=== PATIENT | female | born 1935 | race Caucasian/White ===

== ENCOUNTER 2018-06-28 15:41 | Outpatient (CLI) | payer MEDICARE, BC ==
[2018-06-28 17:24] LABS: #Basophils 0.1 thou/uL (0.0-0.2); #Eosinphils 0.2 thou/uL (0.0-0.7); #Lymphocytes 1.9 thou/uL (1.20-3.40); #Monocytes 0.8 thou/uL (0.11-0.59); #Neutrophils 5.6 thou/uL (1.40-6.50); %Basophils 0.9 % (0.0-1.0); %Eosinophils 2.8 % (0.0-10.0); %Lymphocytes 22.2 % (21.0-51.0); %Monocytes 9.7 % (0.0-10.0); %Neutrophils 64.4 % (42.0-75.0); Hemoglobin 13.2 g/dL (12.0-16.0); Mean Corpuscular HGB CONC 32.7 g/dL (32.0-36.0); Mean Corpuscular Hemoglobin 29.6 pg (27.0-31.0); Mean Corpuscular Volume 90.3 fL (78.0-98.0); Mean Platelet Volume 6.9 fL (7.4-10.4); Platelet Count 211 thou/uL (130-400); RBC Distribution Width 13.3 % (11.5-14.5); Red Blood Cell (RBC) Count 4.48 mill/uL (4.20-5.40); White Blood Cell (WBC) Count 8.7 thou/uL (4.8-10.8)
--- NOTE | 2018-06-28 17:28 | RAD ---
TWO VIEWS OF THE CHEST: 06/28/18 COMPARISON: 04/19/16 HISTORY: Preoperative patient. FINDINGS: Heart and mediastinal contours are stable. Mild linear interstitial density noted bilaterally, stable . Old distal left clavicle fracture and old proximal left humerus fracture noted. No focal consolidat ion, or alveolar edema. IMPRESSION: No acute findings. POS: TIN
[2018-06-28 17:56] LABS: ALT (SGPT) 11 U/L (8-55); AST (SGOT) 21 U/L (5-34); Albumin 4.4 g/dL (3.4-4.8); Alkaline Phosphatase 73 U/L (40-150); Anion Gap 16 mmol/L (10-20); BUN (Urea Nitrogen) 20 mg/dL (9.8-20.1); Bilirubin, Total 0.4 mg/dL (0.2-1.2); Calc. Creatinine Clearance 0 mL/min (70-130); Calcium 9.8 mg/dL (7.8-10.44); Carbon Dioxide 30 mmol/L (23-31); Chloride 98 mmol/L (98-107); Estimated GFR-MDRD 77; Globulin 2.4 g/dL (2.4-3.5); Glucose 93 mg/dL (83-110); Potassium 4.5 mmol/L (3.5-5.1); Protein, Total 6.8 g/dL (6.0-8.3); Sodium 139 mmol/L (136-145)
== END 2018-06-28 15:42 | disposition home or self-care (01) ==
LOC: LABBT 15:41
PROVIDERS: ATTEND Specialist
DX: Z01.818 Encounter for other preprocedural examination (principal); K80.20 Calculus of gallbladder without cholecystitis without obstruction
CPT/HCPCS: 71046; 80053; 85025; 93005; 93010

== ENCOUNTER 2018-07-06 06:22 | Day surgery (SDC) | payer MEDICARE, BC ==
[2018-06-28 16:12] VITALS: BMI 38.5
[2018-07-06] MEDS ORDERED: Ketorolac Tromethamine 30 MG/ML VIAL ONE (07:57)
[2018-07-06] MEDS ORDERED: CEFAZOLIN 2 GM/50 ML BAG ONE (07:57)
[2018-07-06] MEDS ORDERED: Bupivacaine HCl 0.5%/Epinephrine 1:200,000/PF 30 ml Vial ONE (08:43)
[2018-07-06] MEDS ORDERED: Fentanyl 100 MCG/2 ML VIAL ONE ×3 (08:52→11:00)
[2018-07-06] MEDS ORDERED: Promethazine HCl 25 MG/ML VIAL ONE (11:03)
[2018-07-06] MEDS ORDERED: HYDROcodone/Acetaminophen 5/325 mg Tablet ONE (13:41)
[2018-07-06] MEDS ORDERED: Glycopyrrolate 0.2 MG/ML 5 ML SYRINGE ONE (17:01)
[2018-07-06] MEDS ORDERED: Rocuronium Bromide 10 MG/ML (10ML VIAL) ONE (17:01)
[2018-07-06] MEDS ORDERED: PROPOFOL 200 MG/20 ML VIAL ONE (17:01)
[2018-07-06] MEDS ORDERED: Ondansetron PF 4 MG/2 ML Vial ONE (17:01)
[2018-07-06] MEDS ORDERED: PHENYLEPHRINE-NS 100 MCG/ML 10 ML SYRINGE ONE (17:01)
--- NOTE | 2018-07-06 17:48 | OP ---
DATE OF PROCEDURE: 07/06/2018 PREOPERATIVE DIAGNOSIS: Symptomatic cholelithiasis. POSTOPERATIVE DIAGNOSIS: Symptomatic cholelithiasis. PROCEDURE PERFORMED: Laparoscopic cholecystectomy. ANESTHESIA: General endotracheal. INDICATIONS: The patient is an 83-year-old obese white female. She presents with cholelithiasis and symptoms referable to gallbladder. Laparoscopic cholecystectomy is recommended. DESCRIPTION OF OPERATION: Informed consent was obtained. The patient was taken to the operating room where general endotracheal anesthesia was obtained with the patient in the supine position. The abdomen was prepped with Betadine and draped in the usual sterile fashion. 0.25% Marcaine with epinephrine was infiltrated below the umbilicus and a 10 mm infraumbilical incision was created. A Veress needle was passed through this incision into the peritoneal cavity. A pneumoperitoneum was established using carbon dioxide up to a pressure of 15 mmHg. Local anesthetic was infiltrated and 3 additional 5 mm right upper quadrant incisions were created. Through the mid incision, a 5 mm port was passed into the peritoneal cavity. The camera was passed through this port and under direct vision, an 11 port was passed through the infraumbilical incision. The camera was replaced through this port, and under direct vision, 2 additional 5 mm ports were passed through the incisions already created. The gallbladder was grasped and retracted in a cephalad direction. Minimal adhesions were bluntly stripped away from the apex of the gallbladder, and the apex was retracted laterally and inferiorly. Careful dissection was carried out to the apex of the gallbladder to identify the cystic duct and cystic artery. These were each carefully dissected circumferentially. The duct was of normal caliber. Both the duct and the artery were divided between clips, leaving 2 on the side to remain within the abdomen. The gallbladder was then dissected out of the gallbladder fossa using electrocautery and removed through the infraumbilical port site. The fascia was closed with 0 Vicryl suture and a GraNee needle. The right upper quadrant was inspected and irrigated. All irrigant was aspirated. All ports and instruments were removed under direct vision. Pneumoperitoneum was carefully evacuated. Additional local anesthetic was infiltrated into each port site. The skin edges were approximated with 4-0 Monocryl subcuticular sutures, and Dermabond was placed externally. There were no complications. The patient tolerated the procedure well and was taken to the recovery room in stable condition. FINDINGS: Her gallbladder was without inflammatory changes. There were no adhesions. There were stones present within the gallbladder. The duct was small and noninflamed. Cholangiogram was not obtained. There were no complications. The patient tolerated the procedure well. Blood loss was negligible. She was taken to recovery room in stable condition. Job ID: [id number]
== END 2018-07-06 16:03 | disposition home or self-care (01) ==
LOC: SDC 06:22
PROVIDERS: ATTEND Specialist
PROC: 0FT44ZZ Resection of Gallbladder, Percutaneous Endoscopic Approach (ICD-10-PCS; principal; 2018-07-06)
DX: K80.10 Calculus of gallbladder with chronic cholecystitis without obstruction (principal); F32.9 Major depressive disorder, single episode, unspecified; G20 Parkinson's disease; J42 Unspecified chronic bronchitis; E07.9 Disorder of thyroid, unspecified; Z79.899 Other long term (current) drug therapy; Z88.5 Allergy status to narcotic agent; Z88.8 Allergy status to other drugs, medicaments and biological substances
CPT/HCPCS: 88304; J0131; J0670; J1885; J2405; J2550; J2704; J3010

== ENCOUNTER 2018-10-25 12:58 | Outpatient (CLI) | payer MEDICARE, BC ==
--- NOTE | 2018-10-25 13:56 | RAD ---
MARTEL' VIEW SINUSES ONE VIEW ONLY: HISTORY: MRI safety. FINDINGS: No evidence for metal foreign body within either the right or left orbit. IMPRESSION: No evidence for metal foreign body within the orbits. POS: OFF
--- NOTE | 2018-10-25 14:58 | MRI ---
MRI CERVICAL SPINE WITHOUT CONTRAST: HISTORY: Neuropathic pain. Stinging sensation in the entire torso and bilateral arms. COMPARISON: 10/18/2016 FINDINGS: No tonsillar herniation is seen. The vertebral body heights and marrow signal are maintained. There is loss of cervical lordosis. Tiny disk osteophyte complexes and uncovertebral hypertrophic changes are seen, most prominent at the C4-C5, C5-C6, and C6-C7 levels. Mild neural foraminal stenosis is s een at these levels. No cord impingement or compression is seen. The cervical spinal cord demonstra nilton normal cord caliber and signal. Multilevel facet hypertrophic changes are also noted. IMPRESSION: Mild degenerative changes in the cervical spine, as discussed above. POS: CHENG
--- NOTE | 2018-10-25 15:00 | MRI ---
MRI OF THE THORACIC SPINE WITHOUT CONTRAST: INDICATION: History of neuropathic pain. COMPARISON: None. FINDINGS: Bone marrow signal intensity appears within normal limits. The spinal cord of the thoracic spine benjamin ears within normal limits. Prevertebral and paravertebral soft tissues appear within normal limits. At the T1-T2 level, there is mild facet joint degenerative change with mild right neural foraminal na rrowing. At T2-T3, there is no appreciable central canal or neural foraminal narrowing. At T3-4, there is no appreciable central canal or neural foraminal narrowing. At T4-5, there is no appreciable central canal or neural foraminal narrowing. At T5-6, there is no appreciable central canal or neural foraminal narrowing. At T6-7, there is no appreciable central canal or neural foraminal narrowing. At T7-T8, there is no appreciable central canal or neural foraminal narrowing. At T8-T9, there is no appreciable central canal or neural foraminal narrowing. At T9-T10, there is no appreciable central canal or neural foraminal narrowing. At T10-T11, there is a mild broad-based bulge, but no appreciable central canal or neural foraminal n arrowing. At T11-T12, there is no appreciable central canal or neural foraminal narrowing. There are small pe rimeningeal cysts bilaterally. At T12-L1, there is no appreciable central canal or neural foraminal narrowing. IMPRESSION: 1. Mild spondylosis of the thoracic spine without appreciable central canal or neural foraminal narr owing. 2. There is mild right neural foraminal narrowing at T1-T2 due to facet hypertrophy. POS: TPC
== END 2018-10-25 12:59 | disposition home or self-care (01) ==
LOC: BICMRI 12:58
PROVIDERS: ATTEND Nurse Practitioner Family
DX: M79.2 Neuralgia and neuritis, unspecified (principal); M47.814 Spondylosis without myelopathy or radiculopathy, thoracic region; M47.812 Spondylosis without myelopathy or radiculopathy, cervical region; M48.04 Spinal stenosis, thoracic region
CPT/HCPCS: 70210; 72141; 72146

== ENCOUNTER 2018-11-23 08:28 | Outpatient (CLI) | payer MEDICARE, BC ==
--- NOTE | 2018-11-23 14:03 | NM ---
Nuclear medicine [facility]RO brain scan: 11/23/2018 HISTORY: 83-year-old female with Parkinson's disease. TECHNIQUE: Premedication with 130 mg Potassium iodide by mouth 1 hour prior to injection of radiopharmaceutical. 4.65 mCi of I-123 Ioflupane injected. Three-hour delayed SPECT images of brain. FINDINGS: There is symmetrical uptake in the bilateral putamen and caudate nuclei. IMPRESSION: Normal. No evidence of parkinsonism.
== END 2018-11-23 08:29 | disposition home or self-care (01) ==
LOC: NM 08:28
PROVIDERS: ATTEND Psychiatry & Neurology Neurology
DX: G20 Parkinson's disease (principal)
CPT/HCPCS: 78607; A9584

== ENCOUNTER 2019-07-13 13:54 | Emergency (ER) | payer MEDICARE, BC ==
[~2019-07-13 13:54] MED LIST: Iopamidol-370 76% 500 ML 1 ML ONE
[2019-07-13 14:39] LABS: #Basophils 0.1 thou/uL (0.0-0.2); #Eosinphils 0.2 thou/uL (0.0-0.7); #Lymphocytes 1.7 thou/uL (1.20-3.40); #Monocytes 0.8 thou/uL (0.11-0.59); #Neutrophils 5.6 thou/uL (1.40-6.50); %Basophils 0.8 % (0.0-1.0); %Eosinophils 2.4 % (0.0-10.0); %Neutrophils 66.9 % (42.0-75.0); Hemoglobin 14.2 g/dL (12.0-16.0); Mean Corpuscular HGB CONC 33.1 g/dL (32.0-36.0); Mean Corpuscular Hemoglobin 29.9 pg (27.0-31.0); Mean Corpuscular Volume 90.3 fL (78.0-98.0); Mean Platelet Volume 7.4 fL (7.4-10.4); Platelet Count 217 thou/uL (130-400); RBC Distribution Width 14.2 % (11.5-14.5); Red Blood Cell (RBC) Count 4.74 mill/uL (4.20-5.40); White Blood Cell (WBC) Count 8.4 thou/uL (4.8-10.8)
[2019-07-13 16:19] LABS: Albumin 3.9 g/dL (3.4-4.8)
[2019-07-13 16:20] LABS: Calcium 9.3 mg/dL (7.8-10.44); Chloride 96 mmol/L (98-107); Potassium 3.8 mmol/L (3.5-5.1); Sodium 136 mmol/L (136-145)
[2019-07-13 16:21] LABS: Glucose 99 mg/dL (83-110)
[2019-07-13 16:22] LABS: Globulin 2.5 g/dL (2.4-3.5); Protein, Total 6.4 g/dL (6.0-8.3)
[2019-07-13 16:23] LABS: Anion Gap 16 mmol/L (10-20); Bilirubin, Total 0.4 mg/dL (0.2-1.2); Carbon Dioxide 28 mmol/L (23-31)
[2019-07-13 16:24] LABS: Alkaline Phosphatase 68 U/L (40-110)
[2019-07-13 16:25] LABS: BUN (Urea Nitrogen) 22 mg/dL (9.8-20.1); Calc. Creatinine Clearance 0 mL/min (70-130); Estimated GFR-MDRD 80
[2019-07-13 16:26] LABS: AST (SGOT) 17 U/L (5-34)
[2019-07-13 16:27] LABS: ALT (SGPT) Less than 7 U/L (8-55); Lipase 9 U/L (8-78)
--- NOTE | 2019-07-13 16:51 | CT ---
CT abdomen and pelvis with IV contrast HISTORY: Abdominal pain. COMPARISON: 03/13/2013. FINDINGS: Small hiatal hernia is apparent. Scattered tiny cysts throughout the liver are unchanged ap pearance from the prior study. Gallbladder is now surgically absent. The very heterogeneous density of the spleen with innumerable tiny hypodense nodules is stable. 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 Prominent calcification throughout the arterial structures. Postoperative and degenerative changes carmen mbar spine. Fat and bowel protrude into an umbilical hernia that measures up to 6.6 cm diameter and has a 3.8 cm wide neck. A mildly dilated loop of distal ileum extends into the hernia. The bowel wall within the hernia is not significantly thickened or inflamed, although there is stranding in the herniated fat. The distal ileum exiting the hernia extends directly to the colon. There are nondilated loops of jejunum and ileum throughout the abdomen, arguing against a significant obstruction. No free air or free fluid. Diverticula arise from the colon without adjacent inflammation. IMPRESSION: Umbilical hernia containing nonobstructed ileum and abdominal fat that shows mild inflamm ation. Small hiatal hernia. Atherosclerosis. Diverticulosis. No evidence of diverticulitis. Chronic-type findings are stable.
== END 2019-07-13 17:02 | disposition home or self-care (01) ==
LOC: ERS 13:54
DX: K44.9 Diaphragmatic hernia without obstruction or gangrene (principal); K42.9 Umbilical hernia without obstruction or gangrene; K21.9 Gastro-esophageal reflux disease without esophagitis; E03.9 Hypothyroidism, unspecified; Z79.899 Other long term (current) drug therapy
CPT/HCPCS: 36415; 74177; 80053; 83690; 84484; 85025; 93005; Q9967

== ENCOUNTER 2021-05-05 14:09 | Outpatient (CLI) | payer MEDICARE, BC | END 2021-05-05 14:10 | disposition home or self-care (01) | LOC: BICRAD 14:09 | PROVIDERS: ATTEND Physician Assistant Medical | DX: R13.10 Dysphagia, unspecified (principal); R11.0 Nausea; K59.00 Constipation, unspecified | CPT/HCPCS: 74018 ==

== ENCOUNTER 2021-10-29 13:53 | Outpatient (CLI) | payer MEDICARE, BC | END 2021-10-29 13:54 | disposition home or self-care (01) | LOC: MRI 13:53 | PROVIDERS: ATTEND Anesthesiology Pain Medicine | DX: M47.26 Other spondylosis with radiculopathy, lumbar region (principal); M48.062 Spinal stenosis, lumbar region with neurogenic claudication; K76.9 Liver disease, unspecified; D73.89 Other diseases of spleen; M25.78 Osteophyte, vertebrae; M24.28 Disorder of ligament, vertebrae | CPT/HCPCS: 72148 ==

== ENCOUNTER 2022-06-23 07:30 | Day surgery (SDC) | payer MEDICARE, BC ==
[2022-06-22 11:57] VITALS: BMI 35.6
[2022-06-23 08:38] LABS: #Basophils 0.1 thou/uL (0.0-0.2); #Eosinphils 0.2 thou/uL (0.0-0.7); #Lymphocytes 1.7 thou/uL (1.20-3.40); #Monocytes 0.7 thou/uL (0.11-0.59); #Neutrophils 5.4 thou/uL (1.40-6.50); %Basophils 0.7 % (0.0-1.0); %Eosinophils 1.9 % (0.0-10.0); %Lymphocytes 20.8 % (21.0-51.0); %Monocytes 8.9 % (0.0-10.0); %Neutrophils 67.7 % (42.0-75.0); Hemoglobin 12.4 g/dL (12.0-16.0); Mean Corpuscular HGB CONC 32.5 g/dL (32.0-36.0); Mean Corpuscular Hemoglobin 28.6 pg (27.0-31.0); Mean Platelet Volume 7.6 fL (7.4-10.4); Platelet Count 182 10x3/uL (130-400); Red Blood Cell (RBC) Count 4.33 mill/uL (4.20-5.40); White Blood Cell (WBC) Count 7.9 10x3/uL (4.8-10.8)
[2022-06-23] MEDS ORDERED: Thrombin 5000 UNITS/5 ML VIAL ONE (08:44)
[2022-06-23] MEDS ORDERED: Bupivacaine HCl 0.5%/Epinephrine 1:200,000/PF 30 ml Vial ONE (08:44)
[2022-06-23 08:59] LABS: Anion Gap 12 mmol/L (10-20); BUN (Urea Nitrogen) 22 mg/dL (9.8-20.1); Calc. Creatinine Clearance 79 mL/min (70-130); Calcium 9.1 mg/dL (7.8-10.44); Carbon Dioxide 28 mmol/L (23-31); Chloride 101 mmol/L (98-107); Estimated GFR 81; Glucose 99 mg/dL (83-110); Potassium 4.2 mmol/L (3.5-5.1); Sodium 137 mmol/L (136-145)
[2022-06-23] MEDS ORDERED: SUGAMMADEX SODIUM 200 MG/2 ML VIAL ONE (09:04)
[2022-06-23] MEDS ORDERED: fentaNYL PF 100 MCG/2 ML SYRINGE ONE ×2 (09:08→11:03)
[2022-06-23] MEDS ORDERED: Sodium Chloride 0.9% 100 ML ONE ×2 (09:08→13:41)
[2022-06-23] MEDS ORDERED: CEFAZOLIN 2 GM VIAL ONE ×2 (09:08→13:41)
[2022-06-23] MEDS ORDERED: PROPOFOL 200 MG/20 ML VIAL ONE (09:30)
[2022-06-23] MEDS ORDERED: Lidocaine 1% PF 5 ML VIAL ONE (09:30)
[2022-06-23] MEDS ORDERED: Dexamethasone 20 MG/5 ML VIAL ONE (09:30)
[2022-06-23] MEDS ORDERED: PHENYLEPHRINE-NS 100 MCG/ML 10 ML SYRINGE ONE (09:30)
[2022-06-23] MEDS ORDERED: Ondansetron PF 4 MG/2 ML Vial ONE (09:30)
[2022-06-23] MEDS ORDERED: Rocuronium Bromide 10 MG/ML (10ML VIAL) ONE (09:30)
== END 2022-06-23 14:39 | disposition home or self-care (01) ==
LOC: SDC 07:30
PROVIDERS: ATTEND Neurological Surgery
PROC: 01NB0ZZ Release Lumbar Nerve, Open Approach (ICD-10-PCS; principal; 2022-06-23)
DX: M48.062 Spinal stenosis, lumbar region with neurogenic claudication (principal); E78.5 Hyperlipidemia, unspecified; G89.29 Other chronic pain; E03.9 Hypothyroidism, unspecified; M19.90 Unspecified osteoarthritis, unspecified site; I11.9 Hypertensive heart disease without heart failure; Z79.01 Long term (current) use of anticoagulants; Z79.890 Hormone replacement therapy; Z79.899 Other long term (current) drug therapy; Z88.5 Allergy status to narcotic agent; Z88.8 Allergy status to other drugs, medicaments and biological substances; Z95.0 Presence of cardiac pacemaker; Z98.1 Arthrodesis status
CPT/HCPCS: 80048; 85025; C1713; J1100; J2405; J2704; J3490

== ENCOUNTER 2023-10-28 06:41 | Day surgery (SDC) | payer MEDICARE, BC ==
[2023-10-27 15:43] VITALS: BMI 39.1
[2023-10-28 07:51] LABS: #Basophils 0.05 10x3/uL (0.0-0.2); %Basophils 0.6 % (0.0-1.0); %Eosinophils 1.9 % (0.0-10.0); %Monocytes 11.4 % (0.0-10.0); %Neutrophils 67.8 % (42.0-75.0); Hematocrit 35.9 % (36.0-47.0); Hemoglobin 11.3 g/dL (12.0-16.0); Mean Corpuscular HGB CONC 31.5 g/dL (32.0-36.0); Mean Corpuscular Hemoglobin 26.4 pg (27.0-31.0); Mean Corpuscular Volume 83.9 fL (78.0-98.0); Mean Platelet Volume 9.2 fL (7.4-10.4); Platelet Count 163 10x3/uL (130-400); RBC Distribution Width 16.7 % (11.5-14.5); Red Blood Cell (RBC) Count 4.28 mill/uL (4.20-5.40)
[2023-10-28 08:06] LABS: Anion Gap 12 mmol/L (10-20); BUN (Urea Nitrogen) 22 mg/dL (9.8-20.1); Calc. Creatinine Clearance 73 mL/min (70-130); Calcium 9.5 mg/dL (7.8-10.44); Carbon Dioxide 29 mmol/L (23-31); Chloride 104 mmol/L (98-107); Estimated GFR 67; Glucose 100 mg/dL (83-110); Sodium 140 mmol/L (136-145)
[2023-10-28] MEDS ORDERED: Lidocaine 1% PF 5 ML VIAL ONE (08:08)
[2023-10-28] MEDS ORDERED: SUGAMMADEX SODIUM 200 MG/2 ML VIAL ONE (08:08)
[2023-10-28] MEDS ORDERED: Rocuronium Bromide 10 MG/ML (10ML VIAL) ONE (08:08)
[2023-10-28] MEDS ORDERED: Ondansetron PF 4 MG/2 ML Vial ONE (08:08)
[2023-10-28] MEDS ORDERED: PHENYLEPHRINE-NS 100 MCG/ML 10 ML SYRINGE ONE (08:08)
[2023-10-28] MEDS ORDERED: fentaNYL PF 100 MCG/2 ML SYRINGE ONE (08:08)
[2023-10-28] MEDS ORDERED: PROPOFOL 20 ML ONE (08:08)
[2023-10-28] MEDS ORDERED: GLYCOPYRROLATE/PF 0.2 MG/ML VIAL ONE (08:08)
[2023-10-28] MEDS ORDERED: EPINEPHrine 1 MG/ML VIAL ONE (08:15)
[2023-10-28] MEDS ORDERED: Bupivacaine PF 0.5% 30 ML VIAL ONE (08:15)
[2023-10-28] MEDS ORDERED: Thrombin 5000 UNITS/5 ML VIAL ONE (08:15)
[2023-10-28] MEDS ORDERED: Sodium Chloride 0.9% 100 ML ONE ×2 (08:48→13:38)
[2023-10-28] MEDS ORDERED: CEFAZOLIN 2 GM VIAL ONE ×2 (08:48→13:37)
[2023-10-28] MEDS ORDERED: fentaNYL 50 mcg/mL 1 mL Vial ONE ×3 (10:36→12:02)
[2023-10-28] MEDS ORDERED: HYDROmorphone 0.5 MG/0.5 ML SYRINGE ONE ×2 (11:02→11:17)
== END 2023-10-28 15:10 | disposition home or self-care (01) ==
LOC: SDC 06:41
PROVIDERS: ATTEND Neurological Surgery
DX: M48.062 Spinal stenosis, lumbar region with neurogenic claudication (principal); M47.16 Other spondylosis with myelopathy, lumbar region; M70.62 Trochanteric bursitis, left hip; M70.61 Trochanteric bursitis, right hip; I48.91 Unspecified atrial fibrillation; I10 Essential (primary) hypertension; I73.9 Peripheral vascular disease, unspecified; I25.10 Atherosclerotic heart disease of native coronary artery without angina pectoris; M19.90 Unspecified osteoarthritis, unspecified site; G89.4 Chronic pain syndrome; E03.9 Hypothyroidism, unspecified; G20.A1 Parkinson's disease without dyskinesia, without mention of fluctuations; Z95.0 Presence of cardiac pacemaker; Z98.1 Arthrodesis status; Z88.5 Allergy status to narcotic agent; Z88.8 Allergy status to other drugs, medicaments and biological substances; Z79.01 Long term (current) use of anticoagulants; Z79.890 Hormone replacement therapy; Z79.899 Other long term (current) drug therapy
CPT/HCPCS: 63042; 80048; 85025; 93005; C1713; J0171; J3010; J3490; 93010; J0665; J1170; J2405; J2704

== ENCOUNTER 2024-03-05 11:19 | Inpatient (IN) | payer MEDICARE, BC ==
[2024-03-05 14:08] LABS: #Basophils 0.08 10x3/uL (0.0-0.2); %Basophils 0.9 % (0.0-1.0); %Eosinophils 2.8 % (0.0-10.0); %Lymphocytes 16.4 % (21.0-51.0); %Monocytes 11.1 % (0.0-10.0); %Neutrophils 68.3 % (42.0-75.0); Hematocrit 32.7 % (36.0-47.0); Mean Corpuscular HGB CONC 30.6 g/dL (32.0-36.0); Mean Corpuscular Hemoglobin 24.8 pg (27.0-31.0); Mean Corpuscular Volume 80.9 fL (78.0-98.0); Mean Platelet Volume 9.2 fL (7.4-10.4); Platelet Count 188 10x3/uL (130-400); RBC Distribution Width 16.6 % (11.5-14.5); Red Blood Cell (RBC) Count 4.04 mill/uL (4.20-5.40)
[2024-03-05 14:22] LABS: INR-International Normal Ratio 1.5; PTT 39.4 sec (22.9-36.1); Prothrombin Time 17.8 sec (12.0-14.7)
[2024-03-05 14:23] LABS: ALT (SGPT) 6 U/L (8-55); AST (SGOT) 21 U/L (5-34); Albumin 3.5 g/dL (3.4-4.8); Alkaline Phosphatase 76 U/L (40-110); Anion Gap 10 mmol/L (10-20); BUN (Urea Nitrogen) 15 mg/dL (9.8-20.1); Bilirubin, Total 0.7 mg/dL (0.2-1.2); Calc. Creatinine Clearance 0 mL/min (70-130); Calcium 8.9 mg/dL (7.8-10.44); Carbon Dioxide 27 mmol/L (23-31); Chloride 104 mmol/L (98-107); Estimated GFR 71; Glucose 99 mg/dL (83-110); Lipase 16 U/L (8-78); Protein, Total 6.5 g/dL (5.8-8.1); Sodium 137 mmol/L (136-145)
[2024-03-05 14:28] LABS: Troponin I 0.012 ng/mL (< 0.028)
[2024-03-05] MEDS ORDERED: Furosemide 40 MG (4 mL) VIAL ONE (14:54)
[2024-03-05] MEDS ORDERED: Calcium Carbonate 500 MG ChewTAB PO PRN (15:05)
[2024-03-05] MEDS ORDERED: Senokot S 8.6-50 MG TAB PO PRN (15:05)
[2024-03-05] MEDS ORDERED: Acetaminophen 325 MG TAB PO PRN (15:05)
[2024-03-05] MEDS ORDERED: Ondansetron ODT 4 MG TAB PO PRN (15:05)
[2024-03-05] MEDS: Dronedarone HCl 400 MG TAB PO SCH (18:53)
[2024-03-05 18:56] LABS: Troponin I 0.013 ng/mL (< 0.028)
[2024-03-05] MEDS ORDERED: Apixaban 5 MG TAB ONE (20:43)
[2024-03-05 21:20] LABS: Troponin I 0.013 ng/mL (< 0.028)
[2024-03-05] MEDS: Valsartan 80 MG TAB PO SCH (22:13)
[2024-03-05] MEDS: Carbidopa/Levodopa CR 50-200 mg Tablet PO SCH (22:13)
[2024-03-05] MEDS: Apixaban 5 MG TAB PO SCH (22:13)
[2024-03-06 06:30] LABS: #Basophils 0.07 10x3/uL (0.0-0.2); %Basophils 0.8 % (0.0-1.0); %Eosinophils 2.8 % (0.0-10.0); %Lymphocytes 14.8 % (21.0-51.0); %Monocytes 10.2 % (0.0-10.0); Hemoglobin 9.2 g/dL (12.0-16.0); Mean Corpuscular HGB CONC 30.7 g/dL (32.0-36.0); Mean Corpuscular Volume 81.5 fL (78.0-98.0); Mean Platelet Volume 9.4 fL (7.4-10.4); Platelet Count 173 10x3/uL (130-400); RBC Distribution Width 16.6 % (11.5-14.5); Red Blood Cell (RBC) Count 3.68 mill/uL (4.20-5.40)
[2024-03-06 06:58] LABS: ALT (SGPT) Less than 5 U/L (8-55); AST (SGOT) 19 U/L (5-34); Albumin 3.4 g/dL (3.4-4.8); Alkaline Phosphatase 70 U/L (40-110); Anion Gap 14 mmol/L (10-20); BUN (Urea Nitrogen) 18 mg/dL (9.8-20.1); Calc. Creatinine Clearance 74 mL/min (70-130); Calcium 8.8 mg/dL (7.8-10.44); Carbon Dioxide 29 mmol/L (23-31); Chloride 102 mmol/L (98-107); Estimated GFR 69; Globulin 2.9 g/dL (2.4-3.5); Glucose 106 mg/dL (83-110); Magnesium 2.1 mg/dL (1.6-2.6); Protein, Total 6.3 g/dL (5.8-8.1); Sodium 141 mmol/L (136-145)
[2024-03-06] MEDS ORDERED: Levothyroxine Sodium 125 MCG TAB ONE (07:18)
[2024-03-06] MEDS ORDERED: Furosemide 40 MG (4 mL) VIAL ONE (07:18)
[2024-03-06] MEDS: Furosemide 40 MG (4 mL) VIAL SLOW IVP SCH (07:20)
[2024-03-06] MEDS: Levothyroxine Sodium 125 MCG TAB PO SCH (07:20)
[2024-03-06] MEDS ORDERED: Pantoprazole DR 40 MG TAB ONE (08:39)
[2024-03-06] MEDS ORDERED: Apixaban 5 MG TAB ONE (08:39)
[2024-03-06] MEDS: Cholecalciferol 1,000 UNITS (25 MCG) TAB PO SCH (09:58)
[2024-03-06] MEDS: Pantoprazole DR 40 MG TAB PO SCH (10:01)
[2024-03-06] MEDS: Empagliflozin 10 MG TAB PO SCH (18:23)
[2024-03-07] MEDS: traMADol HCl 50 MG TAB PO PRN (05:16)
[2024-03-07 05:27] LABS: #Basophils 0.07 10x3/uL (0.0-0.2); %Basophils 0.9 % (0.0-1.0); %Eosinophils 3.5 % (0.0-10.0); %Lymphocytes 23.3 % (21.0-51.0); %Neutrophils 60.9 % (42.0-75.0); Hematocrit 32.8 % (36.0-47.0); Hemoglobin 10.1 g/dL (12.0-16.0); Mean Corpuscular HGB CONC 30.8 g/dL (32.0-36.0); Mean Corpuscular Hemoglobin 24.8 pg (27.0-31.0); Mean Corpuscular Volume 80.6 fL (78.0-98.0); Mean Platelet Volume 9.5 fL (7.4-10.4); Platelet Count 189 10x3/uL (130-400); RBC Distribution Width 16.5 % (11.5-14.5); Red Blood Cell (RBC) Count 4.07 mill/uL (4.20-5.40)
[2024-03-07 05:38] LABS: Anion Gap 15 mmol/L (10-20); BUN (Urea Nitrogen) 20 mg/dL (9.8-20.1); Calc. Creatinine Clearance 71 mL/min (70-130); Carbon Dioxide 28 mmol/L (23-31); Chloride 100 mmol/L (98-107); Estimated GFR 65; Glucose 101 mg/dL (83-110); Potassium 3.6 mmol/L (3.5-5.1); Sodium 139 mmol/L (136-145)
[2024-03-07] MEDS: Empagliflozin 10 MG TAB PO SCH (09:32)
[2024-03-07] MEDS ORDERED: Furosemide 40 MG (4 mL) VIAL SLOW IVP SCH (15:40)
[2024-03-07] MEDS: Furosemide 40 MG (4 mL) VIAL SLOW IVP SCH (17:01)
[2024-03-07] MEDS: Magnesium 2 GM/50 ML(in water) 2 GM in Premix 1 BAG IVPB SCH (17:01)
[2024-03-08 04:41] LABS: #Basophils 0.08 10x3/uL (0.0-0.2); %Basophils 0.8 % (0.0-1.0); %Eosinophils 2.6 % (0.0-10.0); %Lymphocytes 19.3 % (21.0-51.0); %Monocytes 10.7 % (0.0-10.0); %Neutrophils 66.2 % (42.0-75.0); Hematocrit 33.4 % (36.0-47.0); Hemoglobin 10.3 g/dL (12.0-16.0); Mean Corpuscular HGB CONC 30.8 g/dL (32.0-36.0); Mean Corpuscular Volume 81.1 fL (78.0-98.0); Mean Platelet Volume 9.4 fL (7.4-10.4); Platelet Count 197 10x3/uL (130-400); RBC Distribution Width 16.6 % (11.5-14.5); Red Blood Cell (RBC) Count 4.12 mill/uL (4.20-5.40)
[2024-03-08 04:57] LABS: Anion Gap 17 mmol/L (10-20); BUN (Urea Nitrogen) 27 mg/dL (9.8-20.1); Calc. Creatinine Clearance 43 mL/min (70-130); Calcium 8.9 mg/dL (7.8-10.44); Carbon Dioxide 25 mmol/L (23-31); Chloride 98 mmol/L (98-107); Estimated GFR 36; Glucose 110 mg/dL (83-110); Potassium 3.3 mmol/L (3.5-5.1); Sodium 137 mmol/L (136-145)
[2024-03-08] MEDS: Furosemide 40 MG (4 mL) VIAL SLOW IVP SCH (05:37)
[2024-03-08] MEDS ORDERED: PROPOFOL 200 MG/20 ML VIAL ONE (08:24)
[2024-03-08] MEDS: Potassium Chloride 20 MEQ TAB PO SCH (09:18)
[2024-03-08] MEDS: Sodium Chloride 0.45% 500 ML IV SCH (09:24)
[2024-03-08] MEDS: Ondansetron PF 4 MG/2 ML Vial IVP PRN (19:30)
[2024-03-09 04:11] VITALS: BMI 38.3
[2024-03-09 05:01] LABS: #Basophils 0.05 10x3/uL (0.0-0.2); %Basophils 0.7 % (0.0-1.0); %Eosinophils 3.9 % (0.0-10.0); %Monocytes 10.7 % (0.0-10.0); %Neutrophils 62.3 % (42.0-75.0); Hematocrit 31.6 % (36.0-47.0); Hemoglobin 9.5 g/dL (12.0-16.0); Mean Corpuscular HGB CONC 30.1 g/dL (32.0-36.0); Mean Corpuscular Hemoglobin 24.9 pg (27.0-31.0); Mean Corpuscular Volume 82.7 fL (78.0-98.0); Mean Platelet Volume 9.8 fL (7.4-10.4); Platelet Count 201 10x3/uL (130-400); RBC Distribution Width 16.7 % (11.5-14.5); Red Blood Cell (RBC) Count 3.82 mill/uL (4.20-5.40)
[2024-03-09 06:03] LABS: Anion Gap 15 mmol/L (10-20); BUN (Urea Nitrogen) 26 mg/dL (9.8-20.1); Calc. Creatinine Clearance 43 mL/min (70-130); Calcium 8.8 mg/dL (7.8-10.44); Carbon Dioxide 26 mmol/L (23-31); Chloride 99 mmol/L (98-107); Estimated GFR 36; Glucose 105 mg/dL (83-110); Potassium 3.8 mmol/L (3.5-5.1); Sodium 136 mmol/L (136-145)
[2024-03-09] MEDS ORDERED: Loratadine 10 MG TAB PO SCH (11:30)
[2024-03-09] MEDS ORDERED: Dexamethasone 20 MG/5 ML VIAL ONE (14:40)
[2024-03-09] MEDS ORDERED: Ondansetron PF 4 MG/2 ML Vial ONE (14:40)
[2024-03-09] MEDS ORDERED: PROPOFOL 20 ML ONE (14:41)
[2024-03-09] MEDS ORDERED: Lidocaine 1% PF 5 ML VIAL ONE (14:41)
[2024-03-09] MEDS ORDERED: fentaNYL 50 mcg/mL 1 mL Vial ONE ×5 (14:44→17:33)
[2024-03-09] MEDS ORDERED: DOPamine 400 MG/D5W 250 ML 250 ML ONE (15:38)
[2024-03-09] MEDS: Loratadine 10 MG TAB PO PRN (20:04)
[2024-03-10 05:42] VITALS: TEMP 98.5
[2024-03-10 12:59] VITALS: BP 122/68
== END 2024-03-10 12:35 | disposition home or self-care (01) | DRG 273 ==
LOC: SUATTDRO 11:19 → ERS 11:19 → SUPCPDRO 11:19 → ERHOLD 14:51 → 2SW 03-06 11:58 → OBSVTOIN 03-06 14:29
PROVIDERS: ADMIT Internal Medicine; ATTEND Family Medicine
PROC: 5A2204Z Restoration of Cardiac Rhythm, Single (ICD-10-PCS; 2024-03-08)
PROC: 02583ZZ Destruction of Conduction Mechanism, Percutaneous Approach (ICD-10-PCS; principal; 2024-03-09)
DX: I11.0 Hypertensive heart disease with heart failure (principal); I50.33 Acute on chronic diastolic (congestive) heart failure; J96.01 Acute respiratory failure with hypoxia; I48.19 Other persistent atrial fibrillation; N17.9 Acute kidney failure, unspecified; E03.9 Hypothyroidism, unspecified; G20.A1 Parkinson's disease without dyskinesia, without mention of fluctuations; Z66 Do not resuscitate; F32.A Depression, unspecified; I95.2 Hypotension due to drugs; E66.01 Morbid (severe) obesity due to excess calories; Z95.0 Presence of cardiac pacemaker; Z88.5 Allergy status to narcotic agent; Z88.8 Allergy status to other drugs, medicaments and biological substances; Z79.01 Long term (current) use of anticoagulants; Z79.899 Other long term (current) drug therapy; Z90.49 Acquired absence of other specified parts of digestive tract; Z90.710 Acquired absence of both cervix and uterus; Z68.38 Body mass index [BMI] 38.0-38.9, adult
CPT/HCPCS: 36415; 71045; 80048; 80053; 83690; 83735; 83880; 84443; 84484; 85025; 85610; 85730; 92960; 93005; 93010; 93650; 93798; 97139; C1760; C2630; G0378; J1100; J1265; J1940; J2405; J2704; J3010; J3475

== ENCOUNTER 2024-03-21 12:11 | Outpatient (CLI) | payer MEDICARE, BC | END 2024-03-21 12:12 | disposition home or self-care (01) | LOC: MRI 12:11 | PROVIDERS: ATTEND Nurse Practitioner Family | DX: M48.062 Spinal stenosis, lumbar region with neurogenic claudication (principal); M51.369 Other intervertebral disc degeneration, lumbar region without mention of lumbar back pain or lower extremity pain | CPT/HCPCS: 72148 ==

== ENCOUNTER 2024-06-28 14:54 | Inpatient (IN) | payer MEDICARE, BC ==
[~2024-06-28 14:54] MED LIST changes: -Iopamidol-370 76% 500 ML 1 ML ONE; +Iopamidol-370 76% 500 ML MDV (1 ML CHARGE) ONE
[2024-06-28 17:25] LABS: #Basophils 0.04 10x3/uL (0.0-0.2); %Basophils 0.4 % (0.0-1.0); %Eosinophils 0.3 % (0.0-10.0); %Lymphocytes 11.5 % (21.0-51.0); %Monocytes 7.9 % (0.0-10.0); %Neutrophils 79.2 % (42.0-75.0); Hematocrit 32.1 % (36.0-47.0); Hemoglobin 9.6 g/dL (12.0-16.0); Mean Corpuscular HGB CONC 29.9 g/dL (32.0-36.0); Mean Corpuscular Hemoglobin 23.8 pg (27.0-31.0); Mean Corpuscular Volume 79.7 fL (78.0-98.0); Mean Platelet Volume 9.1 fL (7.4-10.4); Platelet Count 201 10x3/uL (130-400); RBC Distribution Width 18.3 % (11.5-14.5); Red Blood Cell (RBC) Count 4.03 mill/uL (4.20-5.40)
[2024-06-28 17:45] LABS: ALT (SGPT) 17 U/L (Less than 34); AST (SGOT) 29 U/L (11-34); Albumin 3.6 g/dL (3.1-4.5); Alkaline Phosphatase 82 U/L (40-110); Anion Gap 14 mmol/L (10-20); BUN (Urea Nitrogen) 26 mg/dL (9.8-20.1); Bilirubin, Total 0.4 mg/dL (0.3-1.2); Calc. Creatinine Clearance 0 mL/min (70-130); Calcium 9.4 mg/dL (7.8-10.44); Carbon Dioxide 28 mmol/L (23-31); Chloride 105 mmol/L (98-107); Estimated GFR 80; Globulin 3.6 g/dL (2.4-3.5); Glucose 110 mg/dL (83-110); Potassium 4.3 mmol/L (3.5-5.1); Protein, Total 7.2 g/dL (5.8-8.1); Sodium 143 mmol/L (136-145)
[2024-06-28 17:49] LABS: Troponin I 0.014 ng/mL (< 0.028)
[2024-06-28] MEDS ORDERED: Ondansetron ODT 4 MG TAB SL PRN (20:45)
[2024-06-28] MEDS ORDERED: Ondansetron PF 4 MG/2 ML Vial IVP PRN (20:45)
[2024-06-28] MEDS ORDERED: Acetaminophen 325 MG TAB PO PRN (20:45)
[2024-06-28] MEDS ORDERED: Nitroglycerin 2% Ointment 1 INCH/1 GM Packet TOP PRN (20:46)
[2024-06-28] MEDS ORDERED: Furosemide 40 MG (4 mL) VIAL ONE (20:57)
[2024-06-28] MEDS ORDERED: hydrALAZINE 20 MG/ML VIAL ONE (20:57)
[2024-06-28] MEDS ORDERED: Nitroglycerin 2% Ointment 1 INCH/1 GM Packet ONE (20:58)
[2024-06-28] MEDS ORDERED: Aspirin Chewable 81 MG TAB ONE (20:58)
[2024-06-28] MEDS ORDERED: Morphine 2 MG/ML VIAL ONE (21:34)
[2024-06-28] MEDS ORDERED: Bisacodyl 5 MG TAB PO PRN (22:27)
[2024-06-28] MEDS ORDERED: Senokot S 8.6-50 MG TAB PO PRN (22:27)
[2024-06-29 00:05] VITALS: BMI 40.0
[2024-06-29] MEDS: Furosemide 40 MG (4 mL) VIAL SLOW IVP SCH ×2 (00:30→06:17)
[2024-06-29] MEDS: Valsartan 80 MG TAB PO SCH (01:04)
[2024-06-29 04:26] LABS: #Basophils 0.03 10x3/uL (0.0-0.2); %Basophils 0.2 % (0.0-1.0); %Eosinophils 0.2 % (0.0-10.0); %Lymphocytes 12.3 % (21.0-51.0); %Monocytes 9.1 % (0.0-10.0); %Neutrophils 77.7 % (42.0-75.0); Hematocrit 33.7 % (36.0-47.0); Mean Corpuscular HGB CONC 29.7 g/dL (32.0-36.0); Mean Corpuscular Hemoglobin 23.8 pg (27.0-31.0); Mean Platelet Volume 9.4 fL (7.4-10.4); Platelet Count 207 10x3/uL (130-400); RBC Distribution Width 18.5 % (11.5-14.5); Red Blood Cell (RBC) Count 4.21 mill/uL (4.20-5.40)
[2024-06-29 05:20] LABS: Anion Gap 19 mmol/L (10-20); BUN (Urea Nitrogen) 22 mg/dL (9.8-20.1); Calc. Creatinine Clearance 86 mL/min (70-130); Carbon Dioxide 24 mmol/L (23-31); Chloride 103 mmol/L (98-107); Estimated GFR 81; Glucose 125 mg/dL (83-110); Potassium 3.9 mmol/L (3.5-5.1); Sodium 142 mmol/L (136-145)
[2024-06-29 06:06] LABS: Troponin I 0.024 ng/mL (< 0.028)
[2024-06-29 07:00] LABS: Troponin I 0.015 ng/mL (< 0.028)
[2024-06-29] MEDS: Metoprolol Succinate XL 25 MG ER.TAB PO SCH (09:10)
[2024-06-29] MEDS: Enoxaparin 40 MG (0.4 mL) SYRINGE SC SCH (09:10)
[2024-06-29] MEDS: Carbidopa/Levodopa 25-100 mg Tablet PO SCH (09:10)
[2024-06-29] MEDS: FLU (Fluad Triv) TS24-25 (65UP)/MF59C/PF 45 MCG/0.5 ML Syringe IM ONE (09:11)
[2024-06-29] MEDS: Methocarbamol 500 MG TAB PO SCH (13:00)
[2024-06-30 05:04] LABS: Anion Gap 14 mmol/L (10-20); BUN (Urea Nitrogen) 29 mg/dL (9.8-20.1); Calc. Creatinine Clearance 91 mL/min (70-130); Calcium 8.8 mg/dL (7.8-10.44); Carbon Dioxide 28 mmol/L (23-31); Chloride 102 mmol/L (98-107); Estimated GFR 84; Glucose 111 mg/dL (83-110); Potassium 3.8 mmol/L (3.5-5.1); Sodium 140 mmol/L (136-145)
[2024-06-30] MEDS: Levothyroxine Sodium 125 MCG TAB PO SCH (06:04)
[2024-06-30] MEDS: Apixaban 5 MG TAB PO SCH (09:42)
[2024-06-30] MEDS: Hydrocortisone 1% Cream 30 GM TUBE TOP SCH ×2 (15:37→20:29)
[2024-06-30] MEDS: Furosemide 40 MG TAB PO SCH (15:38)
[2024-07-01 05:43] LABS: Anion Gap 13 mmol/L (10-20); BUN (Urea Nitrogen) 32 mg/dL (9.8-20.1); Calc. Creatinine Clearance 92 mL/min (70-130); Calcium 8.7 mg/dL (7.8-10.44); Carbon Dioxide 28 mmol/L (23-31); Chloride 103 mmol/L (98-107); Estimated GFR 85; Glucose 110 mg/dL (83-110); Potassium 3.5 mmol/L (3.5-5.1); Sodium 140 mmol/L (136-145)
[2024-07-01] MEDS: Furosemide 40 MG TAB PO SCH (09:24)
[2024-07-01 11:51] VITALS: BP 136/60; TEMP 98.5
== END 2024-07-01 13:30 | disposition home or self-care (01) | DRG 291 ==
LOC: ERS 14:54 → 2NO 20:33 → OBSVTOIN 06-29 14:47
PROVIDERS: ADMIT Family Medicine; ATTEND Family Medicine
DX: I11.0 Hypertensive heart disease with heart failure (principal); I50.33 Acute on chronic diastolic (congestive) heart failure; I48.0 Paroxysmal atrial fibrillation; E03.9 Hypothyroidism, unspecified; D64.9 Anemia, unspecified; Z79.899 Other long term (current) drug therapy; Z79.01 Long term (current) use of anticoagulants; Z88.8 Allergy status to other drugs, medicaments and biological substances; E66.01 Morbid (severe) obesity due to excess calories; Z68.38 Body mass index [BMI] 38.0-38.9, adult; F32.A Depression, unspecified; Z90.49 Acquired absence of other specified parts of digestive tract; Z90.710 Acquired absence of both cervix and uterus; Z98.890 Other specified postprocedural states
CPT/HCPCS: 36415; 71046; 71275; 80048; 80053; 83880; 84443; 84484; 85025; 93005; 93798; 96374; 96375; J0360; J1650; J1940; J2272; Q9967